=== PATIENT | female | born 1980 | race Caucasian/White ===

== ENCOUNTER → 2017-08-23 | Outpatient (CLI) | payer BC ==
[~2017-08-23] MED LIST: ACET-1256 PO; B-COTAB18 PO; ETONMIS VAGRING; IBUP-1050 PO; LIDO5DIS10 TD; MULT-506 PO; OXYC-57 PO; UNKNOWN ANTIBIOTIC PO
--- NOTE | 2017-08-23 15:17 | DIAGNOSTIC IMAGING REPORT ---
NECK ULTRASOUND HISTORY: ENLARGED LYMPH NODES COMPARISON: None. FINDINGS: Real-time sonographic imaging of the left neck was performed with underwriting service representative images submitted. There are few left-sided cervical lymph nodes with the dominant lymph node measuring 13 x 7 x 7 mm. These demonstrate a normal fatty hilum. The cortex of these lymph nodes are borderline thickened. IMPRESSION: A few left cervical lymph nodes which measure subcentimeter in short axis diameter and demonstrate a normal fatty hilum. However, these demonstrate a borderline thickened cortex. This could be reactive. Follow-up ultrasound in one month is recommended to ensure resolution. In addition, fine-needle aspiration can be performed if these increase in size. Electronically signed by: Jeremias Alberts M.D. 08/23/2017 3:16 PM Dictated Date/Time: 08/23/2017 3:13 PM
== END | disposition home or self-care (01) ==
LOC: C.ULTRBC 13:50
PROVIDERS: ATTEND Nurse Practitioner
DX: R59.9 Enlarged lymph nodes, unspecified (principal)

== ENCOUNTER → 2017-09-22 | Outpatient (CLI) | payer BC ==
--- NOTE | 2017-10-05 14:54 | DIAGNOSTIC IMAGING REPORT ---
NECK ULTRASONOGRAPHY CLINICAL HISTORY: Lymphadenopathy COMPARISON STUDY: 08/23/2017 FINDINGS: The staff reports that this examination was not initially read and is provided for interpretation at this time. In the left retroauricular region there is a 10 x 6 x 5 mm lymph node which previously measured 13 x 7 x 7 mm. A second node in this region measures 6 x 6 x 4 mm. This appears to measure 12 x 7 x 4 mm. Within the left neck, there is an 8 x 5 x 10 mm lymph node which previously measured 10 x 7 x 4 mm. Within the posterior neck, 2 nodes are visualized which were not previously described. These measure 14 x 17 x 4 mm, and 10 x 5 x 3 mm. IMPRESSION: Waxing and waning left cervical lymph nodes. The findings favor a reactive etiology. Clinical follow-up is advocated. If these nodes enlarge, or are clinically suspicious, fine-needle aspiration could always be obtained in follow-up. Electronically signed by: Marlon Richardson M.D. 10/05/2017 2:53 PM Dictated Date/Time: 10/05/2017 2:48 PM
== END | disposition home or self-care (01) ==
LOC: C.ULTRBC 13:21
PROVIDERS: ATTEND Nurse Practitioner
DX: R59.9 Enlarged lymph nodes, unspecified (principal)

== ENCOUNTER → 2017-10-13 | Outpatient (CLI) | payer OTHER ==
--- NOTE | 2017-10-13 11:58 | DIAGNOSTIC IMAGING REPORT ---
ULTRASOUND SOFT TISSUES NECK CLINICAL HISTORY: Enlarged lymph nodes. COMPARISON STUDY: Ultrasound of the soft tissues of the neck dated 09/22/2017 and 08/23/2017. FINDINGS: Real-time, grayscale, and color flow sonography of the soft tissues of the neck is performed at the indicated site of interest in the left periarticular region. There are scattered low suspicion lymph nodes in this region. The largest node is seen in the retroauricular region and measures 10 x 4 x 5 mm (previously measured 10 x 6 x 5 mm on 09/22/2017 and 13 x 7 x 7 mm on 08/23/2017). The remaining nodes identified are subcentimeter. IMPRESSION: Waxing remaining cervical lymph nodes are noted and likely reactive. The largest node has progressively decreased in size from 08/23/2017. Due to small size and interval decrease in size fine-needle aspiration was deferred. This was discussed with the patient at bedside. Follow-up ultrasound is recommended if these nodes enlarge. Electronically signed by: Gentry Yoo M.D. 10/13/2017 11:57 AM Dictated Date/Time: 10/13/2017 11:53 AM
== END | disposition home or self-care (01) ==
LOC: C.ULTR 10:35
PROVIDERS: ATTEND Nurse Practitioner
DX: R59.0 Localized enlarged lymph nodes (principal)

== ENCOUNTER 2019-03-16 08:55 | Observation (INO) ==
--- NOTE | 2019-03-10 15:41 | Anesthesiology Consultation ---
Date of Service March 10, 2019 Assessment & Plan (1) Encounter for pre-operative examination: Check test AM DOS Chart Review Chart Review: Acceptable Risk for Surgery (pending surgeon-ordered preop labs (CBC)) and Patient NOT seen in Pre Admission Testing History Surgery Operation Date: 03/16/19 12:10 Proposed Procedures p L5-S1 Discectomy - Michael Robbins DO Height/Weight Height: 5 ft 3 in Weight: 57.606 kg Allergies Allergy/AdvReac Type Severity Reaction Status Date / Time Cephalosporins Allergy Unknown Verified 02/28/19 06:59 tetracycline Allergy Unknown Verified 02/28/19 06:59 Medications Home Medications Medication Instructions Recorded Confirmed Last Taken Steroid Dose Pack 1 dose PO UD PRN 02/23/19 02/23/19 Unknown ketorolac 1 dose PO UD PRN 02/23/19 02/23/19 Unknown oxycodone-acetaminophen [Percocet] 1 tab PO Q6H PRN #40 tab 02/28/19 Unknown Past Medical History Medical History Disc herniation Temporomandibular joint disorder Past Family History Family History Mother Diabetes Aunt Cancer Past Surgical History Surgical History H/O breast implant H/O lumbar discectomy History of appendectomy Status post surgical removal of both fallopian tubes Social History Smoking Status: Former smoker tobacco type: cigarettes Do You Dip or Chew Tobacco: No Smoking End Date: 10 years ago Hx Alcohol Use: Yes Alcohol type: beer and wine alcohol intake frequency: a few times a month Hx Substance Use: No substance use type: does not use
--- NOTE | 2019-03-15 10:12 | History and Physical Report ---
DATE OF ADMISSION: 03/16/2019 CHIEF COMPLAINT: Back and buttock pain. HISTORY OF PRESENT ILLNESS: Jerry has a recurrent disc herniation, lumbar spine, with nerve root entrapment with significant weakness, moderate pain. She has been worked up extensively, failed conservative care, and has a pretty weak lower extremity, particularly on walking and dorsiflexion. PAST MEDICAL HISTORY: Negative for hypertension, COPD, diabetes, kidney disease, connective tissue disorder. PAST SURGICAL HISTORY: Herniated disc surgery, oral surgery, appendectomy. ALLERGIES: CEPHALOSPORINS. FAMILY HISTORY: Diabetes. SOCIAL HISTORY: She is . Minimal alcohol, no tobacco. Active lifestyle. REVIEW OF SYSTEMS: Denies any fevers, sweats, chills. Ears, nose, and throat negative. No chest pain, palpitations. No asthma, wheezing. No nausea, vomiting. No urgency or frequency. She has numbness and tingling and associated weakness. PHYSICAL EXAMINATION: GENERAL: She is 5 feet, 2 inches, 130, in distress. VITAL SIGNS: Blood pressure 130/80, pulse 80, respiratory rate 16. HEENT: Essentially normal. CARDIAC: Normal S1, S2, no S3. LUNGS: Clear to auscultation. No rales, rhonchi, wheezing. ABDOMEN: Soft, nontender. MUSCULOSKELETAL: She has pain with flexion and extension, pain with percussion, weakness with dorsiflexion and plantarflexion. No upper motor neuron pathology and significant gait abnormality. ASSESSMENT: Herniated disc, lumbar spine. PLAN: Includes a discectomy, L5-S1, lumbar spine.
[~2019-03-16 08:55] MED LIST changes: -ACET-1256 PO; -B-COTAB18 PO; +CEFAZOLIN 2000MG 2,000 MG/15 ML SYR IV SCH; -ETONMIS VAGRING; -IBUP-1050 PO; -LIDO5DIS10 TD; +LR 15ML/HR IV SCH; -MULT-506 PO; -OXYC-57 PO; +SODIUM CHLORIDE 0.9% 1,000 ML IV SCH; -UNKNOWN ANTIBIOTIC PO
[2019-03-16] MEDS ORDERED: PROMETHAZINE HCL 12.5 MG in SODIUM CHLORIDE 0.9% 50 ML IV PRN (09:16)
[2019-03-16] MEDS ORDERED: PHENYLEPHRINE 100MCG/ML 5ML SYR IV PRN (09:16)
[2019-03-16] MEDS ORDERED: fentaNYL citrate 100 MCG/2 ML VIAL IV PRN (09:16)
[2019-03-16] MEDS ORDERED: ATROPINE SULFATE 0.1 MG/ML 10ML SYR IV PRN (09:16)
[2019-03-16] MEDS ORDERED: HYDROmorphone INJ 1 MG/ML SYRINGE IV PRN (09:16)
[2019-03-16] MEDS ORDERED: ONDANSETRON INJ 2 MG/ML 2 ML VIAL IV PRN ×2 (09:16→12:48)
[2019-03-16] MEDS ORDERED: ePHEDrine sulfate 50 MG/ML AMP IV PRN (09:16)
[2019-03-16] MEDS ORDERED: MIDAZOLAM HCL 1 MG/ML 2ML VIAL ONE (09:41)
[2019-03-16] MEDS ORDERED: fentaNYL citrate 100 MCG/2 ML VIAL ONE ×2 (09:41→10:19)
[2019-03-16] MEDS ORDERED: VANCOMYCIN HCL 1000MG/20ML VIAL ONE (09:43)
[2019-03-16] MEDS ORDERED: THROMBIN FOR SOLN 20000 UNIT KIT ONE (09:43)
[2019-03-16] MEDS ORDERED: BACITRACIN INJ 50,000 UNIT VIAL ONE (09:43)
[2019-03-16] MEDS ORDERED: GELATIN SPONGE SZ 100 ONE (09:43)
[2019-03-16] MEDS ORDERED: BUPIVACAINE/EPINEPHRINE 0.5% MPF 1:200,000 30 ML VIAL ONE ×2 (09:43)
[2019-03-16] MEDS ORDERED: SCOPOLAMINE 1.5 MG TDSY ONE (09:45)
[2019-03-16] MEDS ORDERED: CLINDAMYCIN 900 MG / 50ML D5W IV SCH (09:45)
--- NOTE | 2019-03-16 09:50 | History & Physical Bridge Note ---
Date of Service March 16, 2019 History & Physical Bridge Note I have examined the patient, reviewed the History & Physical and in the interval since the performance of the History & Physical I have noted the following changes of clinical significance: no changes noted
[2019-03-16] MEDS ORDERED: SCOPOLAMINE 1.5 MG TDSY TD ONE (09:53)
[2019-03-16] MEDS ORDERED: GLYCOPYRROLATE 0.2 MG/ML VIAL ONE (10:31)
[2019-03-16] MEDS ORDERED: DEXAMETHASONE SOD INJ 4 MG/ML VIAL ONE (10:31)
[2019-03-16] MEDS ORDERED: ONDANSETRON INJ 2 MG/ML 2 ML VIAL ONE (10:31)
[2019-03-16] MEDS ORDERED: ROCURONIUM BROMIDE 10 MG/ML 5 ML VIAL ONE (10:31)
[2019-03-16] MEDS ORDERED: LIDOCAINE HCL 2% 2 ML VIAL/AMP(20MG/ML) INFIL ONE (10:31)
[2019-03-16] MEDS ORDERED: PROPOFOL IV EMULSION 10 MG/ML 20 ML VIAL IV ONE (10:31)
[2019-03-16] MEDS ORDERED: NEOSTIGMINE METHYLSULFATE 5 MG/5 ML SYR ONE (10:31)
[2019-03-16] MEDS ORDERED: METOCLOPRAMIDE HCL INJ 5 MG/ML 2 ML VIAL ONE (10:47)
[2019-03-16] MEDS ORDERED: KETOROLAC 30 MG/ML VIAL ONE (11:16)
--- NOTE | 2019-03-16 11:23 | Post Operative Brief Note ---
Immediate Post Op Note v1 Date of Surgery March 16, 2019 Pre & Post Diagnosis Operation Date: 03/16/19 10:50 Pre-Op Diagnosis: Disc Herniation Post-Op Diagnosis: Disc Herniation Procedure Operation Date: 03/16/19 10:50 Actual Procedures p L5-S1 Discectomy(Not Applicable) - Michael Robbins DO Surgeon Michael Robbins DO Claim Technician davide Estimated Blood Loss 30 Findings Consistent with Post-Op Diagnosis Drains Hemovac Drain (10F) Complications none Disposition Disposition: Recovery Room Overlapping Procedure I was immediately available: during the entire case.
--- NOTE | 2019-03-16 11:43 | Fluoroscopy Report ---
FL spine 1V any level CLINICAL HISTORY: L5-S1 DISCECTOMY COMPARISON STUDY: Lumbar spine MRI February 21, 2019. FLUOROSCOPY TIME: 5 seconds. FLUOROSCOPIC IMAGES: 3. FINDINGS: These images demonstrate surgical instruments directed over the posterior elements at the L 5-S1 level. IMPRESSION: Intraoperative localization of the L5-S1 level. Electronically signed by: Mahin Carmona M.D. 03/16/2019 11:42 AM
--- NOTE | 2019-03-16 12:23 | Anesthesiology Progress Note ---
Date of Service March 16, 2019 Anesthesia Post Procedure Vital Signs Vital Signs: Temp Pulse Pulse Resp BP Pulse Ox 03/16/19 12:09 37.2 C 82 16 115/67 97 03/16/19 12:00 82 14 117/67 96 03/16/19 11:50 87 21 118/69 98 03/16/19 11:40 89 17 120/67 98 03/16/19 11:32 36.6 C 92 H 20 120/60 98 03/16/19 09:24 36.7 C 77 20 120/77 97 Transfer of Care Handoff Completed per policy Notes Mental Status: alert / awake / arousable Patient Amnestic to Procedure: Yes Nausea / Vomiting: adequately controlled Pain: adequately controlled Airway Patency, RR, SpO2: stable & adequate BP & HR: stable & adequate Hydration State: stable & adequate Anesthetic Complications: no major complications apparent
[2019-03-16] MEDS ORDERED: HYDROmorphone INJ 0.5 MG/0.5 ML SYR IV PRN (12:48)
[2019-03-16] MEDS ORDERED: RACEPINEPHRINE 2.25% NEBU SOLN 0.5 ML VIAL INH PRN (12:48)
[2019-03-16] MEDS ORDERED: ACETAMINOPHEN 1,000 MG/100 ML VIAL IV PRN (12:48)
[2019-03-16] MEDS ORDERED: NALOXONE HCL 0.4 MG/1 ML VIAL/CARP IV PRN (12:48)
[2019-03-16] MEDS ORDERED: DEXAMETHASONE SOD PHOSPHATE 8 MG in SYRINGE 0 ML IV PRN (12:48)
[2019-03-16] MEDS ORDERED: SODIUM CHLORIDE 0.9% 1000ML 1,000 ML IV SCH (12:48)
[2019-03-16] MEDS ORDERED: MAGNESIUM HYDROXIDE SUSP 30 ML UDC PO PRN (12:48)
[2019-03-16] MEDS: OXYCODONE HCL IR 5 MG TAB (IMMEDIATE RELEASE) PO PRN ×2 (15:36→23:05)
--- NOTE | 2019-03-16 15:40 | Operative Report ---
DATE OF OPERATION: 03/16/2019 The patient was seen in the holding area, appropriately marked, formal bridge note taken. She was then brought back to the operating room and general intubated anesthetic provided to the patient. PREOPERATIVE DIAGNOSIS: Disc herniation, recurrent disc fragment, L5-S1 on the right. POSTOPERATIVE DIAGNOSIS: Disc herniation, recurrent disc fragment, L5-S1 on the right. PROCEDURE: L5-S1 discectomy, revision L5-S1 lumbar spine. SURGEON: Michael Robbins DO SECURED ENTRANCE MONITOR: Marck Ross PA-C DESCRIPTION OF PROCEDURE: The patient was placed prone, scrubbed, prepped and draped sterile. Formal timeout taken. We made a skin incision, fascial incision. I carefully meticulously took off the scar tissue off the lamina of the sacrum and of L5 vertebrae. It was quite tedious, quite difficult. I carefully, meticulously got out lateral to the dura as I was able to carefully retract the dura medial direction. The dura was actually covered with scar tissue, so was not readily seen. Through with much effort, I was able to retrieve a couple large disc fragments that represented her MRI findings. We irrigated, I was very pleased with the decompression and discectomy aspect. The actual disc did not need to be invaded. We then accentuated the foraminotomy on the right hand side. We irrigated and closed in layers with 1 Vicryl, 2-0 and 3-0 nylon over vancomycin powder and over a Hemovac drain. Sterile dressings applied. The patient returned to PACU improved, stable condition. There were not any apparent intraoperative complications from an anesthesia standpoint and surgical standpoint. Sponge and needle count correct. ESTIMATED BLOOD LOSS: 30 mL. I attest to the content of the Intraoperative Record and any orders documented therein. Any exception s are noted below.
[2019-03-16] MEDS ORDERED: CHECK SCOPOLAMINE PATCH PLACEMENT SCH (16:00)
[2019-03-16] MEDS: KETOROLAC 30 MG/ML VIAL IV SCH ×2 (16:43→23:03)
[2019-03-16] MEDS: DEXAMETHASONE SOD PHOSPHATE 6 MG in SYRINGE 0 ML IV SCH (18:20)
[2019-03-16] MEDS: CLINDAMYCIN 600 MG in DEXTROSE 5% 50 ML IV SCH (18:23)
[2019-03-16] MEDS: DOCUSATE SODIUM 100 MG CAP PO SCH (21:07)
[2019-03-17] MEDS: CLINDAMYCIN 600 MG in DEXTROSE 5% 50 ML IV SCH ×2 (01:59→10:08)
[2019-03-17] MEDS: DEXAMETHASONE SOD PHOSPHATE 6 MG in SYRINGE 0 ML IV SCH ×2 (01:59→10:09)
[2019-03-17] MEDS: KETOROLAC 30 MG/ML VIAL IV SCH ×2 (05:41→10:37)
[2019-03-17] MEDS ORDERED: CLINDAMYCIN PHOS 900 MG/6 ML VIAL IV SCH (06:00)
[2019-03-17 07:17] VITALS: BP 98/59; PULSE 68; TEMP 97.9
[2019-03-17] MEDS: OXYCODONE HCL IR 5 MG TAB (IMMEDIATE RELEASE) PO PRN (08:43)
[2019-03-17] MEDS: DOCUSATE SODIUM 100 MG CAP PO SCH (08:43)
[2019-03-17 16:01] VITALS: O2SAT 97
[2019-03-18] MEDS ORDERED: BISACODYL 5 MG TABEC PO PRN (11:36)
--- NOTE | 2019-03-21 01:39 | Discharge Summary ---
Jerry was admitted to my service late last week after lumbar spine surgery. She did well. She had an uneventful hospital course. Discharged home in improved stable condition. No issues. No complications. She has a followup appointment in 10 days and prescriptions for medication on her chart.
== END 2019-03-17 11:40 | disposition home or self-care (01) ==
LOC: ASU 08:55 → 3E 08:55